=== PATIENT | female | born 1950 | race Caucasian/White ===

== ENCOUNTER 2018-03-13 09:00 | Outpatient (CLI) | payer MEDICARE, OTHER ==
[~2018-03-13] VITALS: Ht 172.7 cm; Wt 65.8 kg
[~2018-03-13 09:00] MED LIST: CLON2TAB16 PO; CLON2TAB22 PO; LEVO50TA6 PO; LVT.05T PO
== END 2018-03-13 10:21 ==
LOC: PREOP 09:00
PROVIDERS: ATTEND Surgery
DX: Z01.818 Encounter for other preprocedural examination (principal)

== ENCOUNTER 2018-03-14 10:21 | Day surgery (SDC) | payer MEDICARE, OTHER ==
[~2018-03-14] VITALS: Ht 172.7 cm; Wt 65.8 kg
[2018-03-14] MEDS ORDERED: NS IV 500 ML 500 ML IV PRN (10:32)
[2018-03-14] MEDS ORDERED: NS IV 500 ML 500 ML ONE (10:41)
[2018-03-14] MEDS ORDERED: HURRICAINE EXT TUBE (BENZOCAINE) XX PRN (10:45)
[2018-03-14] MEDS ORDERED: LIDOCAINE JELLY 2% (XYLOCAINE) 5 ML TUBE MM PRN (10:45)
[2018-03-14] MEDS ORDERED: FLUMAZENIL (ROMAZICON) 0.1 MG/ML 5 ML VIAL INJ PRN (10:45)
[2018-03-14] MEDS ORDERED: NALOXONE 0.4 MG/ML 1 ML (NARCAN) VIAL IVP PRN (10:45)
[2018-03-14 10:50] VITALS: BP 128/71
--- NOTE | 2018-03-14 11:44 | Conscious Sedation/ASA ---
Conscious Sedation Pre-Proced Time Reviewed: 11:00 ASA Class: 2 Airway Mallampati Classification: ([place] appropriate class) I. II. III, IV Lungs Heart ASA score ASA 1: a normal healthy patient ASA 2: a patient with a mild systemic disease (mid diabetes, controlled hypertension, obesity ASA 3: a patient with a severe systemic disease that limits activity (angina , COPD, prior Myocardial infarction) ASA 4: a patient with an incapacitating disease that is a constant threat to life (CHF, renal failure) ASA 5: a moribund patient not expected to survive 24 hrs. (ruptured aneurysm) ASA 6: a declared brain patient whose organs are being harvested. For emergent operations, add the letter E after the classification Grade 2 Sedation Plan: Analgesia, Amnesia, Plan communicated to team members, Discussed options with patient/fam, Discussed risks with patient/fam Note The patient is an appropriate candidate to undergo the planned procedure, sedation, and anesthesia. The patient immediately re-assessed prior to indication. MARY FLORES MD March 14, 2018 11:44 am
[2018-03-14] MEDS ORDERED: ONDANSETRON 4 MG/2 ML (SDV) Z0FRAN IV PRN (11:45)
[2018-03-14] MEDS ORDERED: morphine INJ 10 MG/ML 1ML (SYR OR VIAL) IV PRN (11:45)
[2018-03-14] MEDS ORDERED: HYDROcodone/APAP 5 MG/325 MG (LORTAB) TAB PO PRN (11:45)
[2018-03-14] MEDS ORDERED: ACETAMINOPHEN 325 MG TABLET/CAPLET (TYLENOL) PO PRN (11:45)
--- NOTE | 2018-03-14 11:45 | Progress Note-Pre Operative ---
Pre-Operative Progress Note H&P Reviewed The H&P was reviewed, patient examined and no changes noted. Date Seen by Provider: March 14, 2018 Time Seen by Provider: 11:00 Date H&P Reviewed: March 14, 2018 Time H&P Reviewed: 11:00 Pre-Operative Diagnosis: family hx colon ca MARY FLORES MD March 14, 2018 11:45 am
[2018-03-14] MEDS ORDERED: fentaNYL INJECTION 100 MCG/2 ML AMP ONE ×2 (12:31→12:32)
[2018-03-14] MEDS ORDERED: MIDAZOLAM 2 MG/2 ML (VERSED) VIAL ONE ×5 (12:32→12:57)
[2018-03-14] MEDS ORDERED: LIDOCAINE JELLY 2% (XYLOCAINE) 5 ML TUBE ONE (12:32)
[2018-03-14] MEDS: fentaNYL INJECTION 100 MCG/2 ML AMP IVP PRN ×4 (12:36→13:15)
[2018-03-14] MEDS: MIDAZOLAM 2 MG/2 ML (VERSED) VIAL IVP PRN ×5 (12:55→13:11)
--- NOTE | 2018-03-14 13:46 | Progress Note-Post Operative ---
Post-Operative Progess Note Surgeon (s)/Manager Integrated (s) Surgeon MARY FLORES MD Manager Integrated: none Pre-Operative Diagnosis family hx colon ca Post-Operative Diagnosis mild chronic stage 1 ext and int hemorrhoids. Procedure & Operative Findings Date of Procedure 03/14/18 Procedure Performed/Findings Colonoscopy. Anesthesia Type CS Estimated Blood Loss Estimated blood loss (mL): minimal Specimens/Packing Specimens Removed none MARY FLORES MD March 14, 2018 1:46 pm
--- NOTE | 2018-03-14 13:48 | Discharge Inst-Surgical ---
D/C Lap Instructions-MARK Follow Up 5 years Activity as tolerated High Fiber Diet 25g or more per day Avoid Alcohol, Caffeine, Spicy [place] and Acid foods. Drink 64 fluid oz or more of fluids per day. Symptoms to Report: Fever over 101 degree F, Nausea/Vomiting If any problems/questions: Contact your physician or go to Emergency Room MARY FLORES MD March 14, 2018 1:48 pm
[2018-03-14 14:05] VITALS: BP 127/75
[2018-03-14 14:32] VITALS: BP 119/77
[2018-03-14 14:39] VITALS: BP 119/77
--- NOTE | 2018-03-15 01:06 | OPERATIVE REPORT ---
DATE OF SERVICE: 03/14/2018 ATTENDING PRIMARY CARE PHYSICIAN: Aislinn Torres DO. PREOPERATIVE DIAGNOSIS: Family history of colon cancer. POSTOPERATIVE DIAGNOSIS: Mild chronic stage I external and internal hemorrhoids. The remainder of the rectum and colon were normal. PROCEDURE: Colonoscopy. SURGEON: Mary Flores MD. ANESTHESIA: Conscious sedation. ESTIMATED BLOOD LOSS: Minimal. FINDINGS: Chronic stage I external and internal hemorrhoids. The remainder of the rectum and colon were normal. There were no polyps identified. DISPOSITION: The patient tolerated the procedure well. INDICATIONS: The patient is a 68-year-old female in need of a followup colonoscopy. She reports a history of constipation; however, over the years has incorporated much more fiber including fruits and vegetables and has reached a good medium where her stools are soft and she has a bowel movement on a daily basis. She has had two colonoscopies in the past. The first one was in 2007 and second one in 2011 both of which were normal. She does have a family history of colon cancer with her mother having the disease. She also has two maternal uncles with a history of colon cancer. She does not report any red blood per rectum nor any dark tarry stools. DESCRIPTION OF PROCEDURE: The patient was brought to the endoscopy suite, laid in the left lateral decubitus position. After adequate IV pain and sedating medications and conscious sedation anesthesia, a digital rectal examination was performed. Mild chronic stage I external and internal hemorrhoids were identified, which were not actively edematous nor inflamed and no bleeding. Normal sphincter tone was felt and there were no palpable masses. The endoscope was then intubated to the anus, rectum and gently insufflated. The endoscope was then advanced through the valves of [place] in the rectum with no polyps or any neoplasms identified. We then proceeded through the sigmoid colon where no diverticulosis identified. We then proceeded through the descending, transverse and ascending colon to the cecum. These segments were normal. There were no polyps or neoplasms identified throughout the colon or rectum. The endoscope was then slowly withdrawn while taking a second look and suctioning residual air with no additional findings. The patient tolerated the procedure well. We will recommend continued medical management with a high fiber diet with at least 25 to 30 grams of fiber per day as well as at least 64 fluid ounces of water daily to promote soft stools on a daily basis. Due to her family history of colon cancer, we will recommend a followup colonoscopy in 5 years. Job ID: [id number] DocumentID: [id number] Dictated Date: 03/14/2018 13:39:42 Nursing Home Social Worker Date: 03/14/2018 23:35:18 Dictated By: MARY FLORES MD
== END 2018-03-14 14:40 | disposition home or self-care (01) ==
LOC: ENDO 10:21
PROVIDERS: ATTEND Surgery
DX: Z12.11 Encounter for screening for malignant neoplasm of colon (principal); K64.0 First degree hemorrhoids; E03.9 Hypothyroidism, unspecified; Z80.0 Family history of malignant neoplasm of digestive organs; Z88.5 Allergy status to narcotic agent; Z79.899 Other long term (current) drug therapy